=== PATIENT | female | born 1980 | race African-American/Black ===

== ENCOUNTER 2023-03-30 11:33 | Emergency (ER) | payer MEDICAID ==
[~2023-03-30] VITALS: Ht 154.9 cm; Wt 73.0 kg
[2023-03-30 11:42] VITALS: BP 102/60; TEMP 98.8; O2SAT 99
[2023-03-30 11:48] VITALS: PULSE 83; RESP 18
[2023-03-30] MEDS ORDERED: MUPI15CR11 TP (12:05)
[2023-03-30] MEDS ORDERED: IBUP-2030 MT (12:05)
== END 2023-03-30 12:15 | disposition home or self-care (01) ==
LOC: ER 11:46
DX: T24.211A Burn of second degree of right thigh, initial encounter (principal); T31.0 Burns involving less than 10% of body surface; X12.XXXA Contact with other hot fluids, initial encounter; Y93.89 Activity, other specified; Y92.89 Other specified places as the place of occurrence of the external cause; Y99.8 Other external cause status
CPT/HCPCS: 99281; 99283

== ENCOUNTER 2023-04-14 01:08 | Emergency (ER) | payer MEDICAID ==
[~2023-04-14] VITALS: Ht 154.9 cm; Wt 77.0 kg
[~2023-04-14 01:08] MED LIST: IBUP-2030 MT; MUPI15CR11 TP
[2023-04-14 01:20] VITALS: BP 138/92; RESP 16; TEMP 98.2; O2SAT 98
[2023-04-14 01:21] VITALS: PULSE 85
== END 2023-04-14 03:05 | disposition left against medical advice (07) ==
LOC: ER 01:08
DX: M54.2 Cervicalgia (principal); Z53.21 Procedure and treatment not carried out due to patient leaving prior to being seen by health care provider
CPT/HCPCS: 99281